=== PATIENT | female | born 1955 | race Caucasian/White ===

== ENCOUNTER 2016-12-23 23:54 | Inpatient (IN) | payer OTHER ==
[~2016-12-23] VITALS: Ht 165.1 cm; Wt 78.5 kg
[2016-12-24 02:29] LABS: BASOPHIL % 0.4 % (0-2); PLATELET COUNT 186 x10^3mcL (130-400); RED CELL DISTRIBUTION WIDTH 13.1 % (11.5-14.5)
[2016-12-24 02:36] LABS: CALCIUM 8.8 mg/dL (8.5-10.1); CARBON DIOXIDE 25.3 mmol/L (21-32); CHLORIDE SERUM 105 mmol/L (98-107); CREATININE SERUM 0.6 mg/dL (0.6-1.0); GFR1 > 60 mL/min; GLUCOSE SERUM 112 mg/dL (74-106); POTASSIUM SERUM 3.7 mmol/L (3.5-5.1); SODIUM SERUM 139 mmol/L (136-145)
[2016-12-24 02:41] LABS: ALBUMIN 4.3 g/dL (3.4-5.0); ALKALINE PHOSPHATASE 68 U/L (46-116); ALT/SGPT 19 U/L (14-59); AST/SGOT 17 U/L (15-37); BILIRUBIN TOTAL 0.74 mg/dL (0.20-1.00); TOTAL PROTEIN, SERUM 7.7 g/dL (6.4-8.2)
[2016-12-24 05:13] LABS: UA SPECIFIC GRAVITY <=1.005 (1.005-1.035); microscopic required? YES; urine erythrocyte 2+ (NEGATIVE)
[2016-12-24 06:06] VITALS: BP 140/83
[2016-12-24 06:28] LABS: T3 TOTAL 1.22 ng/mL
[2016-12-24 07:06] LABS: FREE T4 0.96 ng/dL (0.76-1.46); FREE THYROXINE INDEX 2.2 ug/dL (1.4-4.5); T4(THYROXINE) 6.9 ug/dL (4.7-13.3)
[2016-12-24 07:22] LABS: CHOLESTEROL/HDL RATIO 3.5
[2016-12-24 10:15] VITALS: BP 136/67
[2016-12-24 15:30] VITALS: BP 128/69
[2016-12-24 18:43] VITALS: BP 141/69
[2016-12-24 21:23] VITALS: BP 127/65
[2016-12-25 05:37] VITALS: BP 132/66
[2016-12-25 06:17] LABS: BASOPHIL % 0.3 % (0-2); PLATELET COUNT 162 x10^3mcL (130-400); RED CELL DISTRIBUTION WIDTH 12.8 % (11.5-14.5)
[2016-12-25 06:36] LABS: CALCIUM 7.9 mg/dL (8.5-10.1); CARBON DIOXIDE 25.2 mmol/L (21-32); CHLORIDE SERUM 113 mmol/L (98-107); CREATININE SERUM 0.7 mg/dL (0.6-1.0); GFR1 > 60 mL/min; GLUCOSE SERUM 96 mg/dL (74-106); PHOSPHOROUS 3.5 mg/dL (2.5-4.9); POTASSIUM SERUM 4.7 mmol/L (3.5-5.1); SODIUM SERUM 145 mmol/L (136-145)
[2016-12-25 06:42] LABS: ALBUMIN 2.9 g/dL (3.4-5.0)
[2016-12-25 09:30] VITALS: BP 136/73
[2016-12-25 13:31] VITALS: BP 142/70
[2016-12-25 17:15] VITALS: BP 146/78
[2016-12-25 22:16] VITALS: BP 126/52
[2016-12-26 06:09] VITALS: BP 151/71
[2016-12-26 07:26] LABS: ALBUMIN 2.9 g/dL (3.4-5.0); CALCIUM 8.3 mg/dL (8.5-10.1); CARBON DIOXIDE 21.3 mmol/L (21-32); CHLORIDE SERUM 111 mmol/L (98-107); CREATININE SERUM 0.6 mg/dL (0.6-1.0); GFR1 > 60 mL/min; GLUCOSE SERUM 102 mg/dL (74-106); POTASSIUM SERUM 3.4 mmol/L (3.5-5.1); SODIUM SERUM 143 mmol/L (136-145)
[2016-12-26 08:56] LABS: BASOPHIL % 0.5 % (0-2); PLATELET COUNT 174 x10^3mcL (130-400); RED CELL DISTRIBUTION WIDTH 12.9 % (11.5-14.5)
[2016-12-26 10:44] VITALS: BP 152/68
[2016-12-26 13:51] VITALS: BP 173/85
[2016-12-26 14:40] VITALS: BP 168/74
[2016-12-26] MEDS ORDERED: MAC100 PO (15:48)
[2016-12-26 15:49] VITALS: BP 149/59
[2016-12-26] MEDS ORDERED: MOT400 PO (15:49)
[2016-12-26] MEDS ORDERED: LAC PO (15:49)
[2016-12-26 15:52] VITALS: BP 149/59
== END 2016-12-26 16:58 | disposition home or self-care (01) | DRG 690 ==
LOC: ED 23:54 → MU 12-24 04:31 → DU 12-24 04:31 → MU 12-25 08:57
PROVIDERS: Emergency Medicine; ADMIT Family Medicine
DX: N10 Acute pyelonephritis (principal); E44.0 Moderate protein-calorie malnutrition; B96.20 Unspecified Escherichia coli [E. coli] as the cause of diseases classified elsewhere; R31.29 Other microscopic hematuria; E87.6 Hypokalemia; E03.9 Hypothyroidism, unspecified; E78.5 Hyperlipidemia, unspecified; M81.0 Age-related osteoporosis without current pathological fracture; Z16.12 Extended spectrum beta lactamase (ESBL) resistance; Z68.28 Body mass index [BMI] 28.0-28.9, adult
CPT/HCPCS: 51610; 83880; 84439; J0696; J1885; J1956; J2405; J7030; Q9958

== ENCOUNTER 2017-01-20 12:15 | Emergency (ER) | payer OTHER ==
[~2017-01-20 12:15] MED LIST: LAC PO; MAC100 PO; MOT400 PO
[2017-01-20 15:20] LABS: BASOPHIL % 0.4 % (0-2); PLATELET COUNT 197 x10^3mcL (130-400)
[2017-01-20 15:21] LABS: CALCIUM 9.3 mg/dL (8.5-10.1); CHLORIDE SERUM 105 mmol/L (98-107); CREATININE SERUM 0.6 mg/dL (0.6-1.0); GFR1 > 60 mL/min; GLUCOSE SERUM 106 mg/dL (74-106); POTASSIUM SERUM 3.9 mmol/L (3.5-5.1); SODIUM SERUM 142 mmol/L (136-145)
[2017-01-20 15:39] LABS: microscopic required? YES; urine erythrocyte NEGATIVE (NEGATIVE)
[2017-01-20 16:27] VITALS: BP 140/69
== END 2017-01-20 16:27 | disposition home or self-care (01) ==
LOC: ED 12:15
PROVIDERS: Emergency Medicine
DX: M79.1 Myalgia (principal)
CPT/HCPCS: J1885